=== PATIENT | male | born 1965 | race Caucasian/White ===

== ENCOUNTER 2021-09-03 01:38 | Day surgery (SDC) | payer MEDICARE, SELFPAY ==
[2021-08-19 14:49] VITALS: BMI 23.7
[2021-09-03 07:41] VITALS: BP 111/62; PULSE 111; RESP 18; TEMP 36.2; O2SAT 100; BMI 23.6
[2021-09-03] MEDS: LACTATED RINGERS 1,000 ML 150 ML IV CONT (08:15)
--- NOTE | 2021-09-03 08:25 | WPDANESEPPF ---
Anes - Initial Pre Proc Eval Procedure: Operation Date: 09/03/21 09:00 Proposed Procedures p Esophagogastroduodenoscopy & Colonoscopy - Alex Hodgson MD Date/Time: 09/03/21 08:25 Surgeon: Alex Hodgson MD Pre Op Diagnosis: anemia Patient Data Age: 55 Gender: M Height: 1.78 m Weight: 74.6 kg Last Vital Signs Temp 36.2 C L 09/03/21 07:41 Pulse 111 H 09/03/21 07:41 Resp 18 09/03/21 07:41 BP 111/62 09/03/21 07:41 Pulse Ox 100 09/03/21 07:41 Allergies Allergy/AdvReac Type Severity Reaction Status Date / Time No Known Allergies Allergy Verified 09/03/21 07:53 Home Medications Medication Instructions Recorded Confirmed Type aspirin 162 mg PO DAILY 08/19/21 09/03/21 History atorvastatin 40 mg PO DAILY 08/19/21 09/03/21 History hydrocodone-acetaminophen 10 - 325 tablet PO PRN PRN 08/19/21 09/03/21 History omeprazole 20 mg PO DAILY 08/19/21 09/03/21 History sacubitril-valsartan [Entresto] 24 - 26 tablet PO DAILY 08/19/21 09/03/21 History Patient hx anesthesia problems: none Family hx anesthesia problems: none Results Review: All pre-operative results and documents have been reviewed as part of the pre-operative evaluation. [facility] Past Medical History Medical History (Updated 09/03/21 @ 08:29 by Yunior Gonzalez MD) Amputation finger Chronic back pain Hyperlipidemia Myocardial infarct Raynaud disease Surgical History Surgical History (Updated 09/03/21 @ 08:29 by Yunior Gonzalez MD) History of coronary artery stent placement Social History Social History Smoking status: Former smoker Tobacco type: cigarettes Alcohol use details: rarely Substance use: never Substance use type: does not use Living arrangements: with family Spiritual care concerns: No Anes - Eval Final PreProcedure Day of Procedure 09/03/21 08:25 Patient weight: normal Heart: regular rate and rhythm Lungs: clear to auscultation Airway: Mallampati scale class II Neurological: alert and oriented Last oral intake: >/= 8 hours ASA classification: III Emergent: no Anesthetic plan: proceed Anesthesia type and monitoring: general GIVS and standard monitoring Results Review: All pre-operative results and documents have been reviewed as part of the pre-operative evaluation. Informed Consent: The patient's anesthetic plan and its attendant risks and benefits were discussed with the patient/family/POA. Questions were solicited and answers provided to the satisfaction of the patient/family/POA.
--- NOTE | 2021-09-03 08:29 | WPDGICN ---
Assessment and Plan Assessment and plan (1) Encounter for screening colonoscopy: Code(s): Z12.11 - Encounter for screening for malignant neoplasm of colon Status: Acute Assessment and Plan: Patient presents for screening colonoscopy. He reports has been more than 10 years since last screening exam. Colonoscopy will be performed at this time. Further recommendations after endoscopy. (2) GERD (gastroesophageal reflux disease): Code(s): K21.9 - Gastro-esophageal reflux disease without esophagitis Status: Acute Assessment and Plan: Patient complains of chronic heartburn or regurgitation. This typically occurs with bending over and nocturnally. He takes omeprazole on a daily basis. He believes a 40mg dose but supplements this with a 2nd dose if needed. Plan is for EGD because of chronic GE reflux symptoms. And poor response to current management. Anti-reflux measures are reiterated to the patient today. (3) Anemia: Code(s): D64.9 - Anemia, unspecified Status: Acute Assessment and Plan: Patient has some records that report that he is anemic although laboratory parameters not available for review. A CBC will be obtained today. GI Consult Note Consult date/time: 09/03/21 08:29 HPI: Ignacio Smart is a 55 year old male Presents for GI endoscopy. Patient reports his last colonoscopy was 10 years ago. Apparently was unremarkable. Patient returns today for neoplasia screening additionally patient has a history of chronic GE reflux disease. He has heartburn on a frequent basis. Often when bending over. Also at night when recline. He currently takes omeprazole 40mg p.o. daily and supplements this with an extra pill frequently. Patient any denies any dysphagia or bleeding. Family history is noncontributory. Records that accompany patient states that he may have some mild anemia although exact laboratory parameters are not available for review. Patient denies any obvious signs of GI bleeding. He has not had a stool Hemoccult performed. Review of Systems Review of Systems: All systems reviewed & are unremarkable except as noted in HPI and below PMFSH Past Medical History Medical History (Updated 09/03/21 @ 08:31 by Alex Hodgson MD) Amputation finger Chronic back pain Hyperlipidemia Myocardial infarct Raynaud disease Surgical History Surgical History (Updated 09/03/21 @ 08:29 by Yunior Gonzalez MD) History of coronary artery stent placement Social History Social History Smoking status: Former smoker Tobacco type: cigarettes Alcohol use details: rarely Substance use: never Substance use type: does not use Living arrangements: with family Spiritual care concerns: No Meds Home Medications and Allergies Home Medications Medication Instructions Recorded Confirmed Type aspirin 162 mg PO DAILY 08/19/21 09/03/21 History atorvastatin 40 mg PO DAILY 08/19/21 09/03/21 History hydrocodone-acetaminophen 10 - 325 tablet PO PRN PRN 08/19/21 09/03/21 History omeprazole 20 mg PO DAILY 08/19/21 09/03/21 History sacubitril-valsartan [Entresto] 24 - 26 tablet PO DAILY 08/19/21 09/03/21 History Allergies Allergy/AdvReac Type Severity Reaction Status Date / Time No Known Allergies Allergy Verified 09/03/21 07:53 Vital Signs Vital Signs - 24 hr 09/03/21 07:41 Temperature 97.2 F L Pulse Rate 111 H Respiratory Rate 18 Blood Pressure 111/62 Pulse Oximetry 100 Exam Narrative: Physical exam reveals patient to be alert. Vital signs stable. HEENT exam is unremarkable. Patient is anicteric. Lungs are clear to auscultation and percussion. Heart is without murmur or extra sounds. Abdominal exam bowel sounds are present soft nontender with no hepatosplenomegaly. Digital external rectal exam is normal.
--- NOTE | 2021-09-03 09:39 | SUR.OPER ---
EGD started at 916 and ended at 918. Colonoscopy started at 925 and ended at 936.
[2021-09-03 09:40] VITALS: BP 69/33; PULSE 72; RESP 26; O2SAT 97
[2021-09-03 09:50] VITALS: BP 80/37; PULSE 58; RESP 25; O2SAT 97
[2021-09-03 10:00] VITALS: BP 98/53; PULSE 78; RESP 15; O2SAT 98
[2021-09-03 10:01] LABS: Hematocrit 35.5 % (42.0-52.0); Hemoglobin 11.9 g/dL (14.0-18.0); Mean Corpuscular HGB Conc 33.5 g/dl (32-36); Mean Corpuscular Hemoglobin 31.5 pg (26-34); Mean Corpuscular Volume 93.9 fl (80-100); Platelet Count Result 167 k/mm3 (150-375); Red Blood Count 3.78 M/mm3 (4.6-6.20); Red Cell Distribution Width 13.4 % (11.5-14.5); White Blood Count 7.6 K/mm3 (4.5-10.0)
== END 2021-09-03 10:17 | disposition home or self-care (01) ==
PROVIDERS: PCP Internal Medicine; Visit Provider Internal Medicine Gastroenterology
PROC: 0DJ08ZZ Inspection of Upper Intestinal Tract, Via Natural or Artificial Opening Endoscopic (ICD-10-PCS; CPT 43235; principal; 2021-09-03 09:00)
DX: Z12.11 Encounter for screening for malignant neoplasm of colon (principal); K63.5 Polyp of colon; K22.70 Barrett's esophagus without dysplasia; K21.00 Gastro-esophageal reflux disease with esophagitis, without bleeding; E78.5 Hyperlipidemia, unspecified; I73.00 Raynaud's syndrome without gangrene; M54.9 Dorsalgia, unspecified; G89.29 Other chronic pain; I25.2 Old myocardial infarction; Z89.029 Acquired absence of unspecified finger(s)
CPT/HCPCS: 45380; 43239; 36415; 85027; 88305; J2370; J2704; J7120

== ENCOUNTER 2022-02-10 07:29 | Outpatient (CLI) | payer MEDICARE, SELFPAY ==
--- NOTE | ~2022-02-10 | US_ITS ---
EXAMINATION: US aorta DATE: 02/10/2022 08:00 INDICATION: Abdominal aortic bruit TECHNIQUE: Grayscale, color Doppler, and pulsed Doppler images of the aorta and common iliac arteries were obtained. COMPARISON: CT dated 04/23/2018 FINDINGS: The proximal aorta measures 2.3 cm in AP diameter. The mid aorta measures 2.1 cm. The distal aorta me asures 2.0 cm. The right common iliac artery measures 8 mm. The left common iliac artery measures 7 m m. The visualized proximal inferior vena cava is normal. IMPRESSION: 1. Normal caliber abdominal aorta. Reviewed, dictated and finalized at location A.
== END 2022-02-10 07:30 | disposition home or self-care (01) ==
LOC: CHSIMG 07:31
PROVIDERS: PCP Internal Medicine; Visit Provider Internal Medicine
DX: I73.9 Peripheral vascular disease, unspecified (principal); R09.89 Other specified symptoms and signs involving the circulatory and respiratory systems
CPT/HCPCS: 76775

== ENCOUNTER 2022-02-12 07:30 | Outpatient (CLI) | payer MEDICARE, SELFPAY ==
--- NOTE | ~2022-02-12 | US_ITS ---
EXAMINATION: US arterial ankle brachial ind DATE: 02/12/2022 08:16 INDICATION: Peripheral arterial disease. TECHNIQUE: Segmental pressures and plethysmographic and Doppler waveforms of the brachial and lower e xtremity arteries were obtained. COMPARISON: None. FINDINGS: Right and left brachial artery pressures of 99 mm Hg and 99 mm Hg, respectively, are concordant (norm al difference <= 30 mmHg). The right ankle-brachial index (JOESPH) is 1.03 (normal >= 0.9-1.0). The right great toe-brachial index (TBI) is 0.57 (normal >= 0.65). Arterial Doppler waveforms are biphasic at the ankle. The left JOESPH is 1.04. The left TBI is 0.61. Arterial Doppler waveforms are biphasic at the ankle. IMPRESSION: 1. Normal ABIs and mildly decreased TBIs, consistent with arterial occlusive disease. Reviewed, dictated and finalized at location B. IMPRESSION: 1. Normal ABIs and mildly decreased TBIs, consistent with arterial occlusive di sease.
== END 2022-02-12 07:31 | disposition home or self-care (01) ==
LOC: CHSIMG 07:31
PROVIDERS: PCP Internal Medicine; Visit Provider Internal Medicine
DX: R09.89 Other specified symptoms and signs involving the circulatory and respiratory systems (principal); I73.9 Peripheral vascular disease, unspecified; I71.4 Abdominal aortic aneurysm, without rupture
CPT/HCPCS: 93922

== ENCOUNTER 2022-02-19 07:25 | Outpatient (CLI) | payer MEDICARE, SELFPAY ==
--- NOTE | ~2022-02-19 | CT_ITS ---
EXAMINATION: CTA abd aorta runoff DATE: 02/19/2022 08:38 INDICATION: Lower extremity numbness and tingling TECHNIQUE: Computed tomographic angiography (CTA) of the abdomen, pelvis, and both lower extremities was performed with 150 mL Omnipaque-350 intravenous contrast. The dose-length product (DLP) was 871.4 5 mGy-cm. Maximum intensity projection 3D-reconstructions of the arteries were created by the technol lety on a separate workstation. Automated exposure control and iterative reconstruction technique we re employed. COMPARISON: None. FINDINGS: ABDOMINAL AORTA AND ITS BRANCHES: There is calcified atherosclerosis without aneurysm or dissection. The superior mesenteric artery, in ferior mesenteric artery, and celiac axis are unremarkable. Single renal arteries are present. PELVIC VASCULATURE: There is mild atherosclerosis of the common iliac arteries and internal iliac arteries without hemody namically significant stenosis. RIGHT LOWER EXTREMITY VASCULATURE: There is mild calcified atherosclerosis of the distal femoral artery without hemodynamically signific ant stenosis. The remainder of the lower extremity arteries are essentially normal. Three-vessel runo ff at the ankle. LEFT LOWER EXTREMITY VASCULATURE: There is mild atherosclerosis of the distal femoral artery without hemodynamically significant stenos is. There are few focal areas of calcified atherosclerosis without significant stenosis in the superf icial femoral artery. The remainder of the lower extremity arteries are essentially normal. Three-ves tawanna runoff at the ankle. ADDITIONAL FINDINGS: The liver, spleen, pancreas, gallbladder, and adrenal glands are normal. Cysts of the kidneys measure up to 1.8 cm on the right. No pathologically enlarged abdominal or pelvic lymph nodes are identified . There is no free intraperitoneal gas or evidence of bowel obstruction. There is mild lumbar spondyl osis. IMPRESSION: 1. Areas of calcified atherosclerosis without hemodynamically significant stenosis. Reviewed, dictated and finalized at location A. IMPRESSION: 1. Areas of calcified atherosclerosis without hemodynamically significant steno sis.
== END 2022-02-19 07:26 | disposition home or self-care (01) ==
LOC: CHSIMG 07:27
PROVIDERS: PCP Internal Medicine; Visit Provider Internal Medicine
DX: I73.9 Peripheral vascular disease, unspecified (principal)
CPT/HCPCS: 75635; Q9967

== ENCOUNTER 2023-11-02 07:34 | Outpatient (CLI) | payer MEDICARE, SELFPAY ==
--- NOTE | ~2023-11-02 | US_ITS ---
Thyroid ultrasound. Clinical History: Hypothyroidism Findings: Real-time sonography of the thyroid gland was performed. The right lobe measures 5.7 x 1.4 x 2.0 cm. The left lobe measures 4.3 x 1.7 x 1.6 cm. The isthmus is 6 mm in AP diameter. No thyroid nodule identified. Impression: No significant abnormality seen. No thyroid nodule identified.. Reviewed, dictated and finalized at location . O TAPE DUPLICATOR Impression: No significant abnormality seen. No thyroid nodule identified..
== END 2023-11-02 07:35 | disposition home or self-care (01) ==
LOC: CHSIMG 07:36
PROVIDERS: PCP Internal Medicine; Visit Provider Internal Medicine
DX: E03.9 Hypothyroidism, unspecified (principal)
CPT/HCPCS: 76536

== ENCOUNTER 2023-12-15 00:29 | Day surgery (SDC) | payer MEDICARE, SELFPAY ==
[2023-11-30 15:32] VITALS: BMI 23.7
--- NOTE | 2023-12-04 09:59 | PC.NURSE ---
Spoke with patient regarding medication CILOSTAZOL. Pt. verbalizes understanding that the last dose of CILOSTAZOL is to be taken on 12/10/2023 and the Endoscopist will instruct them when to restart after the procedure. PT. to remain on Aspirin.
--- NOTE | 2023-12-11 14:03 | SUR.PREOP ---
Patient called regarding upcoming procedure. Reviewed preop instructions, appointment times, and procedure prep.
--- NOTE | 2023-12-14 13:56 | PM.HPGS ---
History of Present Illness History of Present Illness Consent: Risks, benefits, and alternatives have been discussed and questions answered. Patient agrees to proceed with procedure. Chief complaint: Barretts Esophagus Narrative: Ignacio Smart is a 58 year old male Who 3 years ago was found to have Barretts esophagus when undergoing endoscopy returns now for follow-up. Review of Systems Review of Systems: All systems reviewed & are unremarkable except as noted in HPI and below PMFSH Past Medical History Medical History Amputation finger Chronic back pain Hyperlipidemia Myocardial infarct Raynaud disease Surgical History Surgical History History of coronary artery stent placement Family History Family History Father Cancer Mother Heart disease Social History Social History Smoking packs per day: 1 Smoking cigarettes per day: 20.0 Years smoked: 38 Smoking pack-years: 38.00 Smoking status: Former smoker Tobacco type: cigarettes Alcohol intake: current Alcohol use details: rarely Substance use: never Substance use type: does not use Do You Feel Safe in your Home?: Yes Lack of Transportation: No Lack of Food: Never True Current Housing: I Have Housing Concerned About Future Housing: No Difficulty Paying Gas/Electric Bills: No Difficulty Paying for Meds: No Currently Unemployed: No Education: High School Diploma/GED Difficulty w/ Childcare or Family Care: No Living arrangements: with family Spiritual care concerns: No Meds Home Medications and Allergies Home Medications Medication Instructions Recorded Confirmed Type aspirin 81 mg tablet 81 mg PO DAILY 08/19/21 12/02/23 History hydrocodone 10 mg-acetaminophen 10 - 325 tablet PO Q6H PRN Back 08/19/21 12/02/23 History 325 mg tablet Pain omeprazole 20 mg capsule,delayed 20 mg PO BID 08/19/21 12/02/23 History release sacubitril 24 mg-valsartan 26 mg 24 - 26 tablet PO BID 08/19/21 12/02/23 History tablet (Entresto) cilostazol 50 mg tablet 50 mg PO BID 11/18/23 12/02/23 History clotrimazole 1 % topical solution See Rx Instructions topical 11/18/23 12/02/23 Rx .COMPLEX #30 mL carvedilol 3.125 mg tablet 3.125 mg PO BID 11/30/23 12/02/23 History evolocumab 140 mg/mL subcutaneous 140 mg subcut Q14D 11/30/23 12/02/23 History pen injector (eliaskaterina LemaToick) spironolactone 25 mg tablet 12.5 mg PO DAILY 11/30/23 12/02/23 History Allergies Allergy/AdvReac Type Severity Reaction Status Date / Time atorvastatin Allergy Severe muscle loss Verified 12/02/23 08:27 [id number] Reductase Allergy Severe MUSCLE LOSS Verified 12/02/23 08:27 Inhibitor Exam Const: General: alert Orientation/consciousness: patient oriented x3 Resp: Auscultation: clear to auscultation bilaterally Cardio: Rhythm: regular rhythm GI: GI Palp: Yes Soft to palpation and No Tenderness to palpation present (GI) Neuro: General: patient oriented x3 Assessment and Plan Assessment and plan (1) Castellon's esophagus: Code(s): K22.70 - Castellon's esophagus without dysplasia Status: Acute Assessment and Plan: EGD with possible biopsy or dilatation or cautery.
[2023-12-15 06:16] VITALS: BP 100/55; PULSE 97; RESP 18; TEMP 36.8; O2SAT 100; BMI 23.1
[2023-12-15] MEDS: LACTATED RINGERS 1,000 ML 150 ML IV CONT (06:45)
--- NOTE | 2023-12-15 07:23 | WPDANESEPPF ---
Anes - Initial Pre Proc Eval Procedure: Operation Date: 12/15/23 07:30 Proposed Procedures p Esophagogastroduodenoscopy - Jovani Keller MD Date/Time: 12/15/23 07:23 Surgeon: Jovani Keller MD Pre Op Diagnosis: Barretts Esophagus Patient Data Age: 58 Gender: M Height: 1.78 m Weight: 73 kg Last Vital Signs Temp 98.3 F 12/15/23 06:16 Pulse 97 12/15/23 06:16 Resp 18 12/15/23 06:16 BP 100/55 L 12/15/23 06:16 Pulse Ox 100 12/15/23 06:16 O2 Del Method Room Air 12/15/23 06:16 Allergies Allergy/AdvReac Type Severity Reaction Status Date / Time atorvastatin Allergy Severe muscle loss Verified 12/02/23 08:27 [id number]-MuC Reductase Allergy Severe MUSCLE LOSS Verified 12/02/23 08:27 Inhibitor Home Medications Medication Instructions Recorded Confirmed Type aspirin 81 mg tablet 81 mg PO DAILY 08/19/21 12/02/23 History hydrocodone 10 mg-acetaminophen 10 - 325 tablet PO Q6H PRN Back 08/19/21 12/02/23 History 325 mg tablet Pain omeprazole 20 mg capsule,delayed 20 mg PO BID 08/19/21 12/02/23 History release sacubitril 24 mg-valsartan 26 mg 24 - 26 tablet PO BID 08/19/21 12/02/23 History tablet (Entresto) cilostazol 50 mg tablet 50 mg PO BID 11/18/23 12/02/23 History clotrimazole 1 % topical solution See Rx Instructions topical 11/18/23 12/02/23 Rx .COMPLEX #30 mL carvedilol 3.125 mg tablet 3.125 mg PO BID 11/30/23 12/02/23 History evolocumab 140 mg/mL subcutaneous 140 mg subcut Q14D 11/30/23 12/02/23 History pen injector (Lynette Walker) spironolactone 25 mg tablet 12.5 mg PO DAILY 11/30/23 12/02/23 History Patient hx anesthesia problems: none Family hx anesthesia problems: none Results Review: All pre-operative results and documents have been reviewed as part of the pre-operative evaluation. [facility] Past Medical History Medical History Amputation finger Chronic back pain Hyperlipidemia Myocardial infarct Raynaud disease Surgical History Surgical History History of coronary artery stent placement Family History Family History Father Cancer Mother Heart disease Social History Social History Smoking packs per day: 1 Smoking cigarettes per day: 20.0 Years smoked: 38 Smoking pack-years: 38.00 Smoking status: Former smoker Tobacco type: cigarettes Alcohol intake: current Alcohol use details: rarely Substance use: never Substance use type: does not use Do You Feel Safe in your Home?: Yes Lack of Transportation: No Lack of Food: Never True Current Housing: I Have Housing Concerned About Future Housing: No Difficulty Paying Gas/Electric Bills: No Difficulty Paying for Meds: No Currently Unemployed: No Education: High School Diploma/GED Difficulty w/ Childcare or Family Care: No Living arrangements: with family Spiritual care concerns: No Anes - Eval Final PreProcedure Day of Procedure 12/15/23 07:23 Patient weight: normal Heart: regular rate and rhythm Lungs: clear to auscultation Airway: Mallampati scale class II Neurological: alert and oriented Last oral intake: >/= 8 hours ASA classification: III Emergent: no Anesthetic plan: proceed Anesthesia type and monitoring: general GIVS and standard monitoring Results Review: All pre-operative results and documents have been reviewed as part of the pre-operative evaluation. Informed Consent: The patient's anesthetic plan and its attendant risks and benefits were discussed with the patient/family/POA. Questions were solicited and answers provided to the satisfaction of the patient/family/POA.
[2023-12-15 07:39] VITALS: BP 90/51; PULSE 69; RESP 15; O2SAT 100
[2023-12-15 07:49] VITALS: BP 88/45; PULSE 64; RESP 18; O2SAT 100
[2023-12-15 07:59] VITALS: BP 95/51; PULSE 67; RESP 18; O2SAT 100
== END 2023-12-15 08:24 | disposition home or self-care (01) ==
PROVIDERS: PCP Internal Medicine; Visit Provider Internal Medicine Gastroenterology
PROC: 0DJ08ZZ Inspection of Upper Intestinal Tract, Via Natural or Artificial Opening Endoscopic (ICD-10-PCS; CPT 43235; principal; 2023-12-15 07:30)
DX: K22.70 Barrett's esophagus without dysplasia (principal); K31.84 Gastroparesis; K21.00 Gastro-esophageal reflux disease with esophagitis, without bleeding; K31.A0 Gastric intestinal metaplasia, unspecified; T18.2XXA Foreign body in stomach, initial encounter; W44.F1XA Bezoar entering into or through a natural orifice, initial encounter
CPT/HCPCS: 43239; 88305; 88313; J2704; J7120

== ENCOUNTER 2024-05-11 08:25 | Outpatient (CLI) | payer MEDICARE, SELFPAY ==
--- NOTE | ~2024-05-11 | CT_ITS ---
CT Scan of the Chest without Contrast: Clinical Indication: Lung cancer screening, nicotine dependence Technique: Contiguous sections were acquired throughout the chest without intravenous contrast. Dose reduction technique was used on this scan by utilizing automated exposure control and iterative recon struction technique. The dose-length product (DLP) was 80.14 mGy-cm. Findings: There is no evidence of any significant mediastinal, hilar or axillary lymphadenopathy. Calcified rig ht hilar lymph node present. Coronary artery calcium cages are present. There is no evidence of pleural or pericardial effusion. Biapical scarring is present. Calcified right middle lobe granuloma present. Images through the upper abdomen reveal no abnormalities. Impression: Lung RADS 2: Benign appearance. 12 month follow-up screening CT advised. Reviewed, dictated and finalized at [facility]. Impression: Lung RADS 2: Benign appearance. 12 month follow-up screening CT advised.
== END 2024-05-11 08:26 | disposition home or self-care (01) ==
LOC: CHSIMG 08:26
PROVIDERS: PCP Internal Medicine; Visit Provider Internal Medicine
DX: Z12.2 Encounter for screening for malignant neoplasm of respiratory organs (principal); Z87.891 Personal history of nicotine dependence
CPT/HCPCS: 71271

== ENCOUNTER 2024-06-30 09:29 | Outpatient (CLI) | payer MEDICARE, SELFPAY ==
--- NOTE | ~2024-06-30 | MMUS_ITS ---
EXAMINATION: MM diagnostic deloris BI w kelly, US breast RT limited HISTORY: Right breast pain and swelling retroareolar region TECHNIQUE: 3-D tomosynthesis images of the right breast were performed and synthetic 2-D images were generated. CAD analysis was submitted and interpreted. High resolution limited right breast ultrasoun d was performed. COMPARISON: None BREAST PARENCHYMAL COMPOSITION:Not Dense. The breasts are almost entirely fatty FINDINGS: MAMMOGRAPHIC FINDINGS: There is mild fibroglandular tissue in the subareolar region, most compatible with gynecomastia. No s uspicious mass or distortion. No suspicious metastatic opacification. ULTRASOUND: Hypoechoic region in the subareolar region is compatible with gynecomastia. No suspicious mass eviden t. IMPRESSION: Findings compatible with gynecomastia. No evidence for malignancy. BI-RADS Category 2: Benign finding(s). Reviewed, dictated and finalized at location . IMPRESSION: Findings compatible with gynecomastia. No evidence for malignancy. BI-RADS Category 2: Benign finding(s).
== END 2024-06-30 09:30 | disposition home or self-care (01) ==
LOC: CHSIMG 09:31
PROVIDERS: PCP Internal Medicine; Visit Provider Nurse Practitioner Family
DX: N64.4 Mastodynia (principal)
CPT/HCPCS: 76642; 77062; 77066; G0279

== ENCOUNTER 2024-09-05 14:37 | Outpatient (CLI) | payer MEDICARE, SELFPAY ==
[2024-09-05 14:56] LABS: Basophils Absolute Auto 0.04 K/mm3 (0.00-0.10); Basophils Percent Auto 0.3 % (0.0-1.0); Eosinophils Absolute Auto 0.14 K/mm3 (0.02-0.50); Eosinophils Percent Auto 1.1 % (1.0-6.0); Hematocrit 38.1 % (40.0-54.0); Hemoglobin 12.8 g/dL (14.0-18.0); Immature Granulocyte Absolute 0.06 K/mm3 (0.00-0.00); Immature Granulocyte Percent A 0.5 % (0.0-0.0); Lymphocytes Absolute Auto 1.13 K/mm3 (1.10-4.50); Mean Corpuscular HGB Conc 33.6 g/dL (32-36); Mean Corpuscular Hemoglobin 30.5 pg (27.0-31.0); Mean Corpuscular Volume 90.9 fL (78.0-102.0); Mean Platelet Volume 9.3 fl (8.7-11.0); Monocytes Absolute Auto 1.03 K/mm3 (0.10-0.90); Monocytes Percent Auto 8.2 % (2.0-11.0); Neutrophils Absolute Auto 10.12 K/mm3 (1.70-7.20); Neutrophils Percent Auto 80.9 % (50.0-70.0); Platelet Count Result 194 K/mm3 (150-420); Red Blood Count 4.19 M/mm3 (4.70-6.10); Red Cell Distribution Width 13.3 % (11.6-14.4); White Blood Count 12.5 K/mm3 (4.8-10.8)
[2024-09-05 15:30] LABS: Strep Group A RT-PCR NOT DETECTED (Negative)
== END 2024-09-05 14:38 | disposition home or self-care (01) ==
LOC: CHSLAB 14:39
PROVIDERS: PCP Internal Medicine; Visit Provider Internal Medicine
DX: J06.9 Acute upper respiratory infection, unspecified (principal); J02.9 Acute pharyngitis, unspecified
CPT/HCPCS: 36415; 85025; 87651

== ENCOUNTER 2025-06-30 08:35 | Outpatient (CLI) | payer MEDICARE, SELFPAY ==
--- NOTE | ~2025-06-30 | CT_ITS ---
EXAMINATION:CT lung screening DATE: 06/30/2025 08:49 INDICATION: Personal history of nicotine dependence. TECHNIQUE: Computed tomography (CT) of the chest was performed without intravenous contrast. Automated exposure control and iterative reconstruction technique were employed. The dose-length product (DLP) was 135.56 mGy-cm. COMPARISON: Chest CT 05/11/2024 FINDINGS: There is stable scarring at the lung apices. There is mild emphysema. A calcified right lung nodule and calcified right hilar lymph nodes are consistent with old granulomatous disease. There is a stable 4 mm nodule in left upper lobe. No pleural effusion. The heart size is normal. There are coronary artery calcifications. No pericardial effusion. There is mild thoracic spondylosis. IMPRESSION: 1. Lung-RADS category 2: Benign appearance or behavior. Continue annual screening with noncontrast low-dose chest CT in 12 months. Reviewed, dictated and finalized at location E. IMPRESSION: 1. Lung-RADS category 2: Benign appearance or behavior. Continue annual screeni ng with noncontrast low-dose chest CT in 12 months.
--- OUTSIDE RECORDS SUMMARY | 2025-06-30 08:38 | XMS_ITS | Clinical Summary ---
Author Organization [facility] Address [address] [place] [address] Care Team Providers Care Division Roadmaster Name Role Phone Unavailable Primary Care Provider Unavailabl e Source Comments [facility],non-owned Affiliates and Associated Physician Practices is amultiple site organization consisting of ambulatory clinics and hospital sitesin [place], [place], [place] and [place]. This disclosure is being madepursuant to the Care Everywhere program and may not contain all information available regarding this patient. Last updated 18.[facility] Allergies No known active allergies Social History Tobacco Use Types Packs/Day Years Used Date Smoking Tobacco: Never Assessed Sex and Gender Information Value Date Recorded Sex Assigned at Not on file Legal Sex Male 1:42 PM CDT Gender Identity Not on file Sexual Orientation Not on file Plan of Treatment Health Maintenance Due Date Last Done Comments COLOGUARD (AGES 45-75) - COL ON CA SCREENING 1964 COLON MONITORING 1964 COLONOSCOPY - COLON CA SCREENING 1964 CT COLONOGRAPHY - COLON CA SCREENING 1964 Colorectal Cancer Screening 1964 FIT - COLON CA SCREENING 1964 FLEX SIG - COLON CA SCREENING 1964 LIPID TESTING 1964 HIV SCREENING 1979 HEPATITIS C SCREENING 11/15/1982 DTAP/TDAP/TD VACCINES (1 - Tdap) 1983 PNEUMOCOCCAL VACCINE 50+ (1 of 1 - PCV) 2014 ZOSTER VACCINE (1 of 2) 2014 DEPRESSION SCREENING 10/12/2024 MEDICARE AWV CALENDAR YEAR 2024 COVID-19 VACCINE ( - 2023-2 5 season) 2025 INFLUENZA VACCINE (#1) 2025 Respiratory Syncytial Virus (RSV) Vaccine Pt: or over 60 yrs (1 - 1-dose 75+ series) 2039 HEPATITIS B VACCINE Aged Out No longe r eligible based on patient's age to complete this topic HIB VACCINE Aged Out No longer eligi ble based on patient's age to complete this topic HPV VACCINE Aged Out No longer eligi ble based on patient's age to complete this topic MENINGOCOCCAL (Group B) VACC INE SHARED DECISION-MAKING Aged Out No longer eligibl e based on patient's age to complete this topic MENINGOCOCCAL GROUPS A/C/Y/W VACCINE Aged Out No longer eligible b ased on patient's age to complete this topic Insurance [facility] MANAGED MEDICARE ADV SELF PAY NO INSURANCE Member Subscriber Plan / Payer (Ef fective for All Dates) Name:Samantha Smart Member ID:Not on file Relation to Subscriber:Not on file Name:SAMANTHA SMART Subscriber ID:Not on file Address: [address] [place] [id number] Payer ID:Not on file Group ID:Not on file Type:Self Pay Address: [place], [place] [employer] MANAGED MEDICARE ADV SELF PAY NO INSURANCE Member Subscriber Plan / Payer (Ef fective for All Dates) Name:Samantha Smart Member ID:Not on file Relation to Subscriber:Not on file Name:SAMANTHA SMART Subscriber ID:Not on file Address: [address] [place] [address] Payer ID:Not on file Group ID:Not on file Type:Self Pay Address: [facility] MANAGED MEDICARE ADV SELF PAY NO INSURANCE Member Subscriber Plan / Payer (Ef fective for All Dates) Name:Samantha Smart Member ID:Not on file Relation to Subscriber:Not on file Name:SAMANTHA SMART Subscriber ID:Not on file Address: [address] [place] [address] Payer ID:Not on file Group ID:Not on file Type:Self Pay Address: [facility] MEDICARE ADV
--- OUTSIDE RECORDS SUMMARY | 2025-06-30 08:38 | XMS_ITS | Clinical Summary ---
Author Organization [facility] Address [address] [place] [address] Care Team Providers Care Auto Damage Appraiser Name Role Phone Sanjeev Claudio MD Primary Care Provider [phone] Allergies Active Allergy Reactions Criticality Noted Date Comments Atorvastatin Unknown Medium 11/24/2017 Elevated CPK/CK Currently tolerating 40mg/daily Medications HYDROcodone-acetam inophen (NORCO) 10-325 mg per tabletIndications: Pain Take 1 tablet by mouth every 4 (four) hours as needed 09/30/20 13 Active nitroglycerin (NITROSTAT) 0.[address] 1 tablet (0.4 mg total) under the tongue every 5 (five) minutes as needed for chest pain Active omeprazole (PriLOSEC) 40 mg capsule 07/25/20 22 Active coenzyme Q10 10 mg capsule Take 1 capsule (10 mg total) by mouth daily Active multivitamin capsule Take 1 capsule by mouth daily Active mv-mn/iron/folic acid/herb 190 (VITAMIN D3 COMPLETE ORAL) Take by mouth A ctive cyanocobalamin, vitamin B-12, (VITAMIN B-12 ORAL) Take by mouth Active evolocumab 140 mg/mL pen injectorIndication s:atherosclerotic cardiovascular disease,hyperchole sterolemia Inject 1 mL (140 mg total) under the skin every 2 (two) weeks 6 mL 3 04/22/20 23 Active aspirin 81 mg enteric coated tablet Take 1 tablet (81 mg total) by mouth daily Active sacubitriL-valsart an (ENTRESTO) 24-26 mg tabletIndications: chronic heart failure Take 0.5 tablets by mouth 2 (two) times a day 90 tablet 3 06/06/20 24 Active SF 5000 Plus 1.1 % cream 06/14/20 24 Active sacubitriL-valsart an (Entresto) 24-26 mg tablet Use as directed 28 tablet 08/04/20 24 Active Additional Information Patient not taking.Reported on 09/28/2024 dapagliflozin propanediol (FARXIGA) 10 mg tablet Take 1 tablet (10 mg total) by mouth daily 30 tablet 11 08/12/20 24 025 Active dapagliflozin propanediol (FARXIGA) 10 mg tablet Use as directed 14 tablet 12/07/19 25 Active sacubitriL-valsart an (ENTRESTO) 24-26 mg tabletIndications: chronic heart failure Use as directed 28 tablet 12/07/19 25 Active carvediloL (COREG) 3.125 mg tablet TAKE ONE TABLET BY MOUTH TWICE A DAY 60 tablet 11 02/18/20 25 Active cilostazoL (PLETAL) 50 mg tablet TAKE ONE TABLET BY MOUTH TWICE A DAY 180 tablet 3 02/29/20 25 Active Repatha SureClick 140 mg/mL pen injector ADMINISTER 1 ML(140 MG) UNDER THE SKIN EVERY 14 DAYS 6 mL 05/31/20 25 Active Active Problems Problem Noted Date Diagnosed Date Ischemic cardiomyopathy 04/26/2024 Chronic diastolic congestive heart failure 04/26 Cardiac left ventricular ejection fraction 21-40 percent 04/26/2024 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 11/28/2020 Overview (11/28/2020): Added automatically from request for surgery [id number] Coronary artery disease with angina pectoris 03/2020 Overview (04/16/2020): Added automatically from request for surgery [id number] Chest pain 04/16/2020 Overview (04/16/2020): Added automatically from request for surgery [id number] Thromboangiitis obliterans 12/20/2012 Raised antibody titer 03/22/2012 Injury of finger 01/26/2012 Acid phosphatase serum increased 02/27/2011 Hyperlipidemia Immunizations Immunization Administration Dates Next Due Influenza, Quadrivalent, Spl it, Intramuscular 07/31/2014 Influenza, Quadrivalent, Spl it, Preservative Free, Intramuscular 07/20/2019,07/30/2018,07/16/2015 Influenza, Trivalent, IM (MDV) 06/26/2017,2012 Pneumococcal Conjugate PCV 13 07/16/2015 Tdap 09/12/2009 Surgical History Surgery Date Site/Laterality Comments CARDIAC CATHETERIZATION 05/09/2020 CORONARY STENT PLACEMENT 10/08/2017 2 stents in RIght Coronary Artery AMPUTATION FINGER / THUMB 10/12/2014 - 10/11/2015 Right middle finger tip Medical History Medical History Date Comments Coronary artery disease Hyperlipidemia Hypertension GERD (gastroesophageal reflux disease) well controlled Raynaud's disease Family History Medical History Relation Name Comments Cancer Father Heart disease Father Family history of cardiac disorder - (Added by TW Conv) Heart attack Mother Cancer Other 1 Family history of malignant neoplasm - (Added by TW Conv) Heart disease Other 2 Family history of cardiac disorder - (Added by TW Conv) Anesthesia problems Neg Hx Relation Name Status Comments Father Mother Other 1 Other 2 Social History Tobacco Use Types Packs/Day Years Used Date Smoking Tobacco: Former Cigarettes 1 34 1 980 - 2014 Passive Smoke Exposure: Past Smokeless Tobacco: Never Tobacco Cessation:Counseling Given: Not Answered Alcohol Use Standard Drinks/Week Comments Yes 0 (1 standard drink = 0.6 oz pure alcohol) couple drinks every couple months Personal Safety Answer Date Recorded Have you ever been in or are you currently in a harmful physical or emotional relationship or is someone making you feel afraid or unsafe? 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 Not on file Not on file Not on file Obstetrics History Last Filed Vital Signs Vital Sign Reading Time Taken Comments Blood Pressure 97/65 12/07/2024 11:09 AM VENDING ROUTE SERVICER Pulse 66 12/07/2024 11:09 AM VENDING ROUTE SERVICER Temperature 36.8 C (98.2 F) 12/07/2024 11:09 AM VENDING ROUTE SERVICER Respiratory Rate 18 09/28/2024 8:21 AM VENDING ROUTE SERVICER Oxygen Saturation 97% 06/06/2024 9:15 AM CDT Inhaled Oxygen Concentration - - Weight 76.2 kg (168 lb) 12/07/2024 11:09 AM VENDING ROUTE SERVICER Height 177.8 cm (5' 10) 12/07/2024 11:09 AM VENDING ROUTE SERVICER Body Mass Index 24.11 12/07/2024 11:09 AM VENDING ROUTE SERVICER Plan of Treatment Health Maintenance Due Date Last Done Comments Colon Cancer Screening-Colonoscopy 1964 Depression Screening 1964 Hepatitis C Screening 1964 Prostate Cancer Screening-PSA 1964 Hepatitis B Screening 1982 Regular Well Visit/Exam 18-64 1982 Lung Cancer Screening 2014 Zoster Vaccine (1 of 2) 2014 Pneumococcal vaccine <65 (2 of 2 - PPSV23, PCV20, or PCV21) 09/10/2015 07/16/2015 DTaP/Tdap/Td Vaccine (2 - Td or Tdap) 09/12/2019 09/12/2009 Influenza Vaccine (#1) 2025 9, 07/30/2018, 06/26/2017, Additional history exists Insurance [facility] MEDICARE ADVANTAGE [facility] Address: [address] [address] [place] [address] [facility] MDCR HMO REF [facility] Address: [address] [address] [place] [address] [facility] Address: [address] [address] [place] [address] [employer] MEDICARE ADVANTAGE Advance Directives For more information, please contact: [phone] * Full Code (Latest Code Status on File) Date Activated Date Inactivated Comments 05/20/2024 9:52 AM 05/21/2024 4:38 AM Care Teams Auto Damage Appraiser Relationship Specialty Start Date End Date Sanjeev Claudio MD [address] [place] [address] PCP - General 12/19/16
--- OUTSIDE RECORDS SUMMARY | 2025-06-30 08:38 | XMS_ITS | Encounter Summary ---
Author Organization [facility] Address [address] [place] [address] Phone Care Team Providers Care Transport Coordinator Name Role Phone Sanjeev Claudio MD Primary Care Provider Encounter Details Date Type Department Care Team (Latest Contact Info) Description 10/09/2017 Orders Only [facility] Scanning, Provider Social History Tobacco Use Types Packs/Day Years Used Date Smoking Tobacco: Former Sex and Gender Information Value Date Recorded Sex Assigned at Not on file Legal Sex Male 8:59 AM 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 TWINE POLISHER OPERATOR Gender Identity Not on file Sexual Orientation Not on file documented as of this encounter Plan of Treatment Not on file documented as of this encounter Procedures Procedure Name Priority Date/Time Associated Diagnosis Comments CARDIOLOGY DOCUMENT SCAN 10/08/2017 documented in this encounter Results * SCAN - CARDIOLOGY (10/08/2017) Anatomical Region Laterality Modality Other us Provider Scanning CV CARDIAC SERVICES PROCEDURES Edited Result - Final documented in this encounter Visit Diagnoses Not on filedocumented in this encounter Care Teams Transport Coordinator Relationship Specialty Start Date End Date Sanjeev Claudio MD [address] [place], [place] [id number] PCP - General 12/19/16 documented as of this encounter
--- OUTSIDE RECORDS SUMMARY | 2025-06-30 08:38 | XMS_ITS | Encounter Summary ---
Author Organization [facility] Address [address] [place] [address] Phone Care Team Providers Care Corrective And Manual Arts Therapist Name Role Phone Sanjeev Claudio MD Primary Care Provider Encounter Details Date Type Department Care Team (Latest Contact Info) Description 07/20/2020 Orders Only [facility] Scanning, Provider Social History Tobacco Use Types Packs/Day Years Used Date Smoking Tobacco: Former Cigarettes Q uit: 2013 Smokeless Tobacco: Never Alcohol Use Standard Drinks/Week Comments Not Currently 0 (1 standard drink = 0.6 oz pur e alcohol) Sex and Gender Information Value Date Recorded Sex Assigned at Not on file Legal Sex Male 8:59 AM MULTIPLE DRILL OPERATOR Gender Identity Not on file Sexual Orientation Not on file documented as of this encounter Plan of Treatment Not on file documented as of this encounter Procedures Procedure Name Priority Date/Time Associated Diagnosis Comments SCAN - LABS 07/20/2020 documented in this encounter Results * SCAN - LABS (07/20/2020) us Provider Scanning Final Result documented in this encounter Visit Diagnoses Not on filedocumented in this encounter Care Teams Corrective And Manual Arts Therapist Relationship Specialty Start Date End Date Sanjeev Claudio MD [address] [place], [place] [id number] PCP - General 12/19/16 documented as of this encounter
--- OUTSIDE RECORDS SUMMARY | 2025-06-30 08:38 | XMS_ITS | Encounter Summary ---
Author Organization [facility] Address [address] [place] [address] Phone Care Team Providers Care Assistant Surveyor Name Role Phone Sanjeev Claudio MD Primary Care Provider [phone] Encounter Details Date Type Department Care Team (Latest Contact Info) Description 10/23/2022 Orders Only [facility] Scanning, Provider Social History Tobacco Use Types Packs/Day Years Used Date Smoking Tobacco: Former Cigarettes 1 34 1 980 - 2013 Smokeless Tobacco: Never Alcohol Use Standard Drinks/Week Comments Yes 0 (1 standard drink = 0.6 oz pure alcohol) couple drinks every couple months Sex and Gender Information Value Date Recorded Sex Assigned at Not on file Legal Sex Male 8:59 AM OPERA SINGER Gender Identity Not on file Sexual Orientation Not on file 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
--- OUTSIDE RECORDS SUMMARY | 2025-06-30 08:38 | XMS_ITS | Encounter Summary ---
Author Organization [facility] Address [address] [place] [address] Phone Care Team Providers Care Jig Fitter Name Role Phone Sanjeev Claudio MD Primary Care Provider Encounter Details Date Type Department Care Team (Latest Contact Info) Description 07/14/2019 Orders Only [facility] Scanning, Provider Social History Tobacco Use Types Packs/Day Years Used Date Smoking Tobacco: Former Sex and Gender Information Value Date Recorded Sex Assigned at Not on file Legal Sex Male 8:59 AM BARREL RIFLER HOOK Gender Identity Not on file Sexual Orientation Not on file documented as of this encounter Plan of Treatment Not on file documented as of this encounter Procedures Procedure Name Priority Date/Time Associated Diagnosis Comments SCAN - LABS 07/14/2019 documented in this encounter Results * SCAN - LABS (07/14/2019) us Provider Scanning Edited Result - Final documented in this encounter Visit Diagnoses Not on filedocumented in this encounter Care Teams Jig Fitter Relationship Specialty Start Date End Date Sanjeev Claudio MD [address] [place] [address] PCP - General 12/19/16 documented as of this encounter
--- OUTSIDE RECORDS SUMMARY | 2025-06-30 08:38 | XMS_ITS | Encounter Summary ---
Author Organization [facility] Address [address] [place] [address] Phone Care Team Providers Care Manager Equity Name Role Phone Sanjeev Claudio MD Primary Care Provider Encounter Details Date Type Department Care Team (Latest Contact Info) Description 05/11/2018 Orders Only [facility] Scanning, Provider Social History Tobacco Use Types Packs/Day Years Used Date Smoking Tobacco: Former Sex and Gender Information Value Date Recorded Sex Assigned at Not on file Legal Sex Male 8:59 AM GOLD LEAF ROLLER Gender Identity Not on file Sexual Orientation Not on file documented as of this encounter Plan of Treatment Not on file documented as of this encounter Procedures Procedure Name Priority Date/Time Associated Diagnosis Comments SCAN - LABS 05/11/2018 documented in this encounter Results * SCAN - LABS (05/11/2018) us Provider Scanning Final Result documented in this encounter Visit Diagnoses Not on filedocumented in this encounter Care Teams Manager Equity Relationship Specialty Start Date End Date Sanjeev Claudio MD [address] [place] [address] PCP - General 12/19/16 documented as of this encounter
--- OUTSIDE RECORDS SUMMARY | 2025-06-30 08:38 | XMS_ITS | Encounter Summary ---
Author Organization [facility] Address [address] [place] [address] Phone Care Team Providers Care Carbon Brusher Assembler Name Role Phone Sanjeev Claudio MD Primary Care Provider [phone] Encounter Details Date Type Department Care Team (Latest Contact Info) Description 11/10/2019 Orders Only [facility] Scanning, Provider Social History Tobacco Use Types Packs/Day Years Used Date Smoking Tobacco: Former Sex and Gender Information Value Date Recorded Sex Assigned at Not on file Legal Sex Male 8:59 AM MISSILE AND MISSILE CHECKOUT TECHNICIAN Gender Identity Not on file Sexual Orientation Not on file documented as of this encounter Plan of Treatment Not on file documented as of this encounter Procedures Procedure Name Priority Date/Time Associated Diagnosis Comments SCAN - RADIOLOGY/IMAGING 11/10/2019 documented in this encounter Results * SCAN - RADIOLOGY/IMAGING (11/10/2019) Anatomical Region Laterality Modality Other us Provider Scanning Final Result documented in this encounter Visit Diagnoses Not on filedocumented in this encounter Care Teams Carbon Brusher Assembler Relationship Specialty Start Date End Date Sanjeev Claudio MD [address] [place], [place] [id number] PCP - General 12/19/16 documented as of this encounter"
--- OUTSIDE RECORDS SUMMARY | 2025-06-30 08:38 | XMS_ITS | Encounter Summary ---
Author Organization [facility] Address [address] [place] [address] Phone Care Team Providers Care Civil Engineer'S Aide Name Role Phone Sanjeev Claudio MD Primary Care Provider [phone] Encounter Details Date Type Department Care Team (Latest Contact Info) Description 03/06/2021 Orders Only [facility] Scanning, Provider [...] on file Legal Sex Male 8:59 AM CHEESE COOKER Gender Identity Not on file Sexual Orientation Not on file Occupation Industry Job Start Date Job End Date Retired [employer] Not on file Not on file Not on file documented as of this encounter Plan of Treatment Not on file documented as of this encounter Procedures Procedure Name Priority Date/Time Associated Diagnosis Comments SCAN - LABS 03/05/2021 documented in this encounter Results * SCAN - LABS (03/05/2021) us Provider Scanning Edited Result - Final documented in this encounter Visit Diagnoses Not on filedocumented in this encounter Care Teams Civil Engineer'S Aide Relationship Specialty Start Date End Date Sanjeev Claudio MD [address] [place] [address] PCP - General 12/19/16 documented as of this encounter
== END 2025-06-30 08:36 | disposition home or self-care (01) ==
LOC: CHSIMG 08:36
PROVIDERS: PCP Internal Medicine; Visit Provider Internal Medicine
DX: Z12.2 Encounter for screening for malignant neoplasm of respiratory organs (principal); Z87.891 Personal history of nicotine dependence
CPT/HCPCS: 71271

== ENCOUNTER 2025-09-05 09:53 | Outpatient (CLI) | payer MEDICARE, SELFPAY ==
--- NOTE | ~2025-09-05 | CT_ITS ---
EXAMINATION: CT abdomen pelvis w con DATE: 09/05/2025 11:05 INDICATION: Acute, left lower abdominal pain. TECHNIQUE: Computed tomography (CT) of the abdomen and pelvis was performed with 100 cc Omnipaque 350 intravenous contrast. Automated exposure control and iterative reconstruction technique were employed. The dose-length product was 255.67 mGy-cm. COMPARISON: None. FINDINGS: The lung bases do not show acute findings. No focal lesions of liver and spleen. Gallbladder is distended in size without evidence of calcified gallstones or edema. Pancreas shows no acute findings. Kidneys do not show calculi are obstruction. No evidence small bowel obstruction. Moderate fecal impaction of the colon. Significant calcific atherosclerotic changes of abdominal aorta. No pelvic mass or fluid collections. Degenerative disc disease at L4-5 level. IMPRESSION: 1. No calculi or obstruction of the kidneys. 2. No focal inflammatory changes in the lower left abdomen. Fecal impaction of the colon. The appendix is not distinctly visible. 3. Calcific atherosclerotic changes of abdominal aorta. Reviewed, dictated and finalized at location T. URE ANALYSIS TECHNICIAN
[2025-09-05 10:15] LABS: Appearance Urine Clear (Clear); Glucose Urine UA 3+ (Negative); Leukocyte Esterase Ur Negative LEU/UL (Negative); Nitrate Urine Negative (Negative); Specific Grav Ur 1.020 (1.010-1.020)
[2025-09-05 10:16] LABS: Add Urine Microscopic? NO; Hematocrit 40.1 % (40.0-54.0); Hemoglobin 12.9 g/dL (14.0-18.0); Mean Corpuscular HGB Conc 32.2 g/dL (32-36); Mean Corpuscular Hemoglobin 29.9 pg (27.0-31.0); Mean Corpuscular Volume 92.8 fL (78.0-102.0); Platelet Count Result 209 K/mm3 (150-420); Red Blood Count 4.32 M/mm3 (4.70-6.10); White Blood Count 7.1 K/mm3 (4.8-10.8)
[2025-09-05 10:27] LABS: Alanine Aminotransferase 18 U/L (6-50); Albumin Level 4.4 g/dL (3.5-5.1); Alkaline Phosphatase 54 U/L (38-126); Anion Gap 10 mmol/L (4-12); Aspartate Amino Transferase 31 U/L (17-59); Bilirubin,Total 0.5 mg/dL (0.2-1.3); Blood Urea Nitrogen 20 mg/dL (9-20); Calcium 9.5 mg/dL (8.4-10.2); Carbon Dioxide 26 mmol/L (22-30); Chloride 106 mmol/L (98-107); Estimated Glomerular Filt Rate 59; Glucose 109 mg/dL (65-110); Osmolality Calculated 297 mOsm/kg (285-295); Potassium 3.9 mmol/L (3.4-5.0); Sodium 142 mmol/L (137-145); Total Protein 7.2 g/dL (6.3-8.2)
--- OUTSIDE RECORDS SUMMARY | 2025-09-05 10:54 | XMS_ITS | Encounter Summary ---
Author Organization [facility] Address [address] [place] [address] Care Team Providers Care Spar Machine Operator Helper Name Role Phone Sanjeev Claudio MD Primary Care Provider John Fairchild MD Unavailable Unavailable Encounter Details Date Type Department Care Team (Late st Contact Info) Description 05/18/2018 Abstract [facility] [address] [place] [id number] John Murrell MD [address] [place] [address], [address] [place] [address] Social History Tobacco Use Types Packs/Day Years Used Date Smoking Tobacco: Former Cigarettes Q uit: 2016 Smokeless Tobacco: Never Alcohol Use Standard Drinks/Week Comments Yes 0 (1 standard drink = 0.6 oz pur e alcohol) Rarely Sex and Gender Information Value Date Recorded Sex Assigned at Not on file Legal Sex Male 10:52 AM 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 Gender Identity Not on file Sexual Orientation Not on file Occupation Industry Job Start Date Job End Date Not on file Not on file Not on file Not on file documented as of this encounter Plan of Treatment Not on file documented as of this encounter Procedures Procedure Name Priority Date/Time Associated Diagnosis Comments ZULMA IFA SCREEN WI RFX TO TITER/CASCADE Routine 05/10/2018 documented in this encounter Results * ZULMA IFA SCREEN WI RFX TO TITER/CASCADE (05/10/2018) ZULMA TITER Positive ZULMA PATTERN Homogeneous 05/10/2018 us John Murrell MD LABORATORY Final Resul t documented in this encounter Visit Diagnoses Not on filedocumented in this encounter Care Teams Spar Machine Operator Helper Relationship Specialty Start Date End Date Sanjeev Claudio MD [address] [place] [address] PCP - General INTERNAL MEDICINE 10/15/17 John Fairchild MD [address] [place] [address] INTERVENTIONAL CARDIOLOGY 09/21/18 documented as of this encounter
--- OUTSIDE RECORDS SUMMARY | 2025-09-05 10:54 | XMS_ITS | Clinical Summary ---
Author Organization [facility] Address [address] [place] [address] Care Team Providers Care Construction Trades Contractor Name Role Phone Sanjeev Claudio MD Primary Care Provider [phone] John Fairchild MD Unavailable Unavailable Allergies Active Allergy Reactions Criticality Noted Date Comments Atorvastatin Other (see comment) Medium 11/24/2017 Elevated CPK/CK Medications aspirin EC (ASPIRIN) 81 MG EC tablet Take 81 mg by mouth daily. Active omeprazole 20 MG capsule Take 20 mg by mouth daily. Active hydrocodone-campos taminophen 10-325 MG tablet Take 1 tablet by mouth every 6 (six) hours as needed for Pain. Active nitroGLYCERIN 0.[address] 1 tablet (0.4 mg total) under the tongue every 5 (five) minutes as needed for Chest Pain. Maximum of 3 doses. 25 tablet 3 11/24/2017 Active amlodipine 10 MG tablet 10 mg daily. 06/09/2018 Active cyclobenzaprine 10 MG tablet Take 10 mg by mouth 3 (three) times daily as needed for Muscle Spasms. Active cilostazol 50 MG tablet Take 50 mg by mouth 2 (two) times daily. Active clopidogrel 75 MG tablet Take 75 mg by mouth daily. Active pravastatin 40 MG tablet Take 40 mg by mouth nightly at bedtime. Active Active Problems Problem Noted Date Diagnosed Date Coronary artery disease invo lving sho[place] coronary artery of [place] heart without angina pectoris 09/16/2018 S/P drug eluting coronary stent placement 2017 History of acute inferior wall DC 09/16/2018 HLD (hyperlipidemia) DC (myocardial infarction) Family History Relation Status Comments Father Mother Alive DC Social History Tobacco Use Types Packs/Day Years Used Date Smoking Tobacco: Former Cigarettes Q uit: 2016 Smokeless Tobacco: Never Alcohol Use Standard Drinks/Week Comments Yes 0 (1 standard drink = 0.6 oz pur e alcohol) Rarely Sex and Gender Information Value Date Recorded Sex Assigned at Not on file Legal Sex Male 10:52 AM SPECIAL EDUCATION CASE MANAGER Gender Identity Not on file Sexual Orientation Not on file Occupation Industry Job Start Date Job End Date Not on file Not on file Not on file Not on file Last Filed Vital Signs Vital Sign Reading Time Taken Comments Blood Pressure 126/74 09/16/2018 12:34 PM SPECIAL EDUCATION CASE MANAGER Pulse 68 09/16/2018 12:34 PM SPECIAL EDUCATION CASE MANAGER Temperature - - Respiratory Rate 16 09/16/2018 12:34 PM SPECIAL EDUCATION CASE MANAGER Oxygen Saturation - - Inhaled Oxygen Concentration - - Weight 77.8 kg (171 lb 9.6 oz) 09/16/2018 12:34 PM SPECIAL EDUCATION CASE MANAGER Height 178.4 cm (5' 10.25) 09/16/2018 12:34 PM SPECIAL EDUCATION CASE MANAGER Body Mass Index 24.45 09/16/2018 12:34 PM SPECIAL EDUCATION CASE MANAGER Plan of Treatment Health Maintenance Due Date Last Done Comments Colorectal Cancer Screening Colonoscopy (10 Years) 1964 Annual Physical 1967 Hepatitis C 1982 DTaP, Tdap and Td Vaccines ( 1 - Tdap) 1983 Zoster Vaccines (1 of 2) 2014 Pneumococcal Vaccine: 50+ Years (2 of 2 - PPSV23, PCV20, or PCV21) 09/10/2015 07/16/2015 ASCVD LDL 07/14/2020 07/14/2019, 05/10/2018, 10/10/2017 RSV Immunization or 60+ Years (1 - Risk 60-74 years 1-dose series) 2024 COVID-19 Vaccine ( - 2024-2 6 season) 2025 Influenza Adult (#1) 2025 Hepatitis A Vaccines Aged Out No long er eligible based on patient's age to complete this topic Meningococcal B Vaccine Aged Out No l onger eligible based on patient's age to complete this topic Meningococcal Vaccine Aged Out No иван roberto eligible based on patient's age to complete this topic RSV Immunizations Under 20 Months Aged Out No longer eligible b ased on patient's age to complete this topic Procedures Procedure Name Priority Date/Time Associated Diagnosis Comments LIPID PANEL Routine 07/14/2019 from Last 3 Months or Most Recently Relevant to Health Maintenance Results * LIPID PANEL (07/14/2019) CHOLESTEROL 177 HDL 52 TRIGLYCERIDES 95 CHOL/HDL RATIO 3.4 LDL (CALCULATED) 106 07/14/2019 us Doc [facility] LABORATORY Final Result from Last 3 Months or Most Recently Relevant to Health Maintenance [place] [address] MEDICARE AET Care Teams Construction Trades Contractor Relationship Specialty Start Date End Date Sanjeev Claudio MD [address] [place] [address] PCP - General INTERNAL MEDICINE 10/15/17 John Fairchild MD [address] [place] [address] INTERVENTIONAL CARDIOLOGY 09/21/18
--- OUTSIDE RECORDS SUMMARY | 2025-09-05 10:54 | XMS_ITS | Encounter Summary ---
Author Organization [facility] Address [address] [place] [address] Phone Care Team Providers Care Harness Fitter Name Role Phone Sanjeev Claudio MD Primary Care Provider Encounter Details Date Type Department Care Team (Latest Contact Info) Description 10/09/2017 Orders Only [facility] Scanning, Provider Social History Tobacco Use Types Packs/Day Years Used Date Smoking Tobacco: Former Sex and Gender Information Value Date Recorded Sex Assigned at Not on file Legal Sex Male 8:59 AM PRINCIPAL DATA ARCHITECT Gender Identity Not on file Sexual Orientation [...] on filedocumented in this encounter Care Teams Harness Fitter Relationship Specialty Start Date End Date Sanjeev Claudio MD [address] [place], [place] [id number] PCP - General 12/19/16 documented as of this encounter
--- OUTSIDE RECORDS SUMMARY | 2025-09-05 10:54 | XMS_ITS | Encounter Summary ---
Author Organization [facility] Address [address] [place] [address] Care Team Providers Care Fitness Sales Associate Name Role Phone Sanjeev Claudio MD Primary Care Provider [phone] John Fairchild MD Unavailable Unavailable Encounter Details Date Type Department Care Team (Late st Contact Info) Description 05/21/2018 Abstract [facility] AT [address] [place] [address] Anjelica Bragg, HATTIE [address] [facility] [address] [place] [id number] Social History Tobacco Use Types Packs/Day Years Used Date Smoking Tobacco: Former Cigarettes Q uit: 2016 Smokeless Tobacco: Never Alcohol Use Standard Drinks/Week Comments Yes 0 (1 standard drink = 0.6 oz pur e alcohol) Rarely Sex and Gender Information Value Date Recorded Sex Assigned at Not on file Legal Sex Male 10:52 AM 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 Gender Identity Not on file Sexual Orientation Not on file Occupation Industry Job Start Date Job End Date Not on file Not on file Not on file Not on file documented as of this encounter Plan of Treatment Not on file documented as of this encounter Procedures Procedure Name Priority Date/Time Associated Diagnosis Comments LIPID PANEL (OUTSIDE LAB) Routine 05/10/2018 CMP (ABSTRACTED LAB) Routine 05/10/2018 IRON STUDIES Routine 05/10/2018 GFR Routine 05/10/2018 T3 FREE (ABSTRACTED) Routine 05/10/2018 CK (CPK) Routine 05/10/2018 documented in this encounter Results * LIPID PANEL (OUTSIDE LAB) (05/10/2018) CHOLESTEROL 189 TRIGLYCERIDES 61 HDL 48 LDL (CALCULATED) 129 CHOL/HDL RATIO 3.9 05/10/2018 us Sanjeev Claudio MD LAB-OUTSIDE/ABSTRACTED Final Result * GFR (05/10/2018) 05/10/2018 us Sanjeev Claudio MD LABORATORY Final Result * CMP (ABSTRACTED LAB) (05/10/2018) SODIUM S/P/B 140 POTASSIUM S/P/B 4.6 CHLORIDE S/P/B 106 CO2 29 CREATININE S/P/B 1.04 0.7 - 1.3 CALCIUM S/P/B 9.0 TOTAL PROTEIN S/P/B 6.9 ALBUMIN S/P/B 3.8 3.5 - 5.0 AST 25 ALT 31 ALKALINE PHOSPHATASE S/P/B 57 BILIRUBIN TOTAL S/P/B 0.51 GLUCOSE 100 mg/dL BUN 22 OSMOLALITY (S/P/B) 283 ANION GAP 5 A/G RATIO 1.2 BUN CREATININE RATIO 21.2 05/10/2018 Result Guevara Claudio MD LAB-OUTSIDE/ABSTRACTED Final Result * IRON STUDIES (05/10/2018) IRON 86 % IRON SATURATION 28.9 IRON BINDING CAPACITY 298 FREE T4 0.95 TSH 4.58 FERRITIN 189 VITAMIN B12 S/P/B 410 05/10/2018 us Sanjeev Claudio MD LABORATORY Final Result * T3 FREE (ABSTRACTED) (05/10/2018) FREE T3 2.52 05/10/2018 us Sanjeev Claudio MD LAB-OUTSIDE/ABSTRACTED Final Result * CK (CPK) (05/10/2018) CPK 469 05/10/2018 us Sanjeev Claudio MD LABORATORY Final Result documented in this encounter Visit Diagnoses Not on filedocumented in this encounter Care Teams Fitness Sales Associate Relationship Specialty Start Date End Date Sanjeev Claudio MD [address] [place] [id number] PCP - General INTERNAL MEDICINE 10/15/17 John Fairchild MD [address] [place] [address] INTERVENTIONAL CARDIOLOGY 09/21/18 documented as of this encounter
--- OUTSIDE RECORDS SUMMARY | 2025-09-05 10:54 | XMS_ITS | Encounter Summary ---
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
--- OUTSIDE RECORDS SUMMARY | 2025-09-05 10:54 | XMS_ITS | Encounter Summary ---
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
--- OUTSIDE RECORDS SUMMARY | 2025-09-05 10:54 | XMS_ITS | Encounter Summary ---
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
--- OUTSIDE RECORDS SUMMARY | 2025-09-05 10:54 | XMS_ITS | Encounter Summary ---
Author Organization 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
--- OUTSIDE RECORDS SUMMARY | 2025-09-05 10:55 | XMS_ITS | Encounter Summary ---
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
--- OUTSIDE RECORDS SUMMARY | 2025-09-05 10:55 | XMS_ITS | Clinical Summary ---
Author Organization [facility] Address [address] [place] [address] Care Team Providers Care Restorer Paper And Prints Name Role Phone Sanjeev Claudio MD Primary Care Provider Allergies Active Allergy Reactions Criticality Noted Date Comments Atorvastatin Unknown Medium 11/24/2017 Elevated CPK/CK Currently tolerating 40mg/daily Medications HYDROcodone-aceta minophen (NORCO) 10-325 mg per tabletIndications :Pain Take 1 tablet by mouth every 4 (four) hours as needed 013 Active nitroglycerin (NITROSTAT) 0.[address] 1 tablet (0.4 mg total) under the tongue every 5 (five) minutes as needed for chest pain Active omeprazole (PriLOSEC) 40 mg capsule 022 Active coenzyme Q10 10 mg capsule Take 1 capsule (10 mg total) by mouth daily Active multivitamin capsule Take 1 capsule by mouth daily Active mv-mn/iron/folic acid/herb 190 (VITAMIN D3 COMPLETE ORAL) Take by mouth A ctive cyanocobalamin, vitamin B-12, (VITAMIN B-12 ORAL) Take by mouth Active evolocumab 140 mg/mL pen injectorIndicatio ns:atheroscleroti c cardiovascular disease,hyperchol esterolemia Inject 1 mL (140 mg total) under the skin every 2 (two) weeks 6 mL 3 023 Active aspirin 81 mg enteric coated tablet Take 1 tablet (81 mg total) by mouth daily Active sacubitriL-valsar johnson (ENTRESTO) 24-26 mg tabletIndications :chronic heart failure Take 0.5 tablets by mouth 2 (two) times a day 90 tablet 3 Active SF 5000 Plus 1.1 % cream Active sacubitriL-valsar johnson (Entresto) 24-26 mg tablet Use as directed 28 tablet Active Additional Information Patient not taking.Reported on 09/28/2024 dapagliflozin propanediol (FARXIGA) 10 mg tablet Take 1 tablet (10 mg total) by mouth daily 30 tablet 11 Active dapagliflozin propanediol (FARXIGA) 10 mg tablet Use as directed 14 tablet Active sacubitriL-valsar johnson (ENTRESTO) 24-26 mg tabletIndications :chronic heart failure Use as directed 28 tablet Active carvediloL (COREG) 3.125 mg tablet TAKE ONE TABLET BY MOUTH TWICE A DAY 60 tablet 11 Active cilostazoL (PLETAL) 50 mg tablet TAKE ONE TABLET BY MOUTH TWICE A DAY 180 tablet 3 Active Repatha SureClick 140 mg/mL pen injector ADMINISTER 1ML(140MG) UNDER THE SKIN EVERY 14 DAYS 6 mL Active Repatha SureClick 140 mg/mL pen injector ADMINISTER 1 ML(140 MG) UNDER THE SKIN EVERY 14 DAYS 6 mL 025 2024 Discontinued Active Problems Problem Noted Date Diagnosed Date Ischemic cardiomyopathy 04/26/2024 Chronic diastolic congestive heart failure 04/26 Cardiac left ventricular ejection fraction 21-40 percent 04/26/2024 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 11/28/2020 Overview (11/28/2020): Added automatically from request for surgery [id number] Coronary artery disease with angina pectoris 03/2020 Overview (04/16/2020): Added automatically from request for surgery [id number] Chest pain 04/16/2020 Overview (04/16/2020): Added automatically from request for surgery [id number] Thromboangiitis obliterans 12/20/2012 Raised antibody titer 03/22/2012 [...] on file Legal Sex Male 8:59 AM PRINTED CIRCUIT LAYOUT TAPER Gender Identity Not on file Sexual Orientation Not on file 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 Not on file Not on file Last Filed Vital Signs Vital Sign Reading Time Taken Comments Blood Pressure 97/65 12/07/2024 11:09 AM PRINTED CIRCUIT LAYOUT TAPER Pulse 66 12/07/2024 11:09 AM PRINTED CIRCUIT LAYOUT TAPER Temperature 36.8 C (98.2 F) 12/07/2024 11:09 AM PRINTED CIRCUIT LAYOUT TAPER Respiratory Rate 18 09/28/2024 8:21 AM PRINTED CIRCUIT LAYOUT TAPER Oxygen Saturation 97% 06/06/2024 9:15 AM CDT Inhaled Oxygen Concentration - - Weight 76.2 kg (168 lb) 12/07/2024 11:09 AM PRINTED CIRCUIT LAYOUT TAPER Height 177.8 cm (5' 10) 12/07/2024 11:09 AM PRINTED CIRCUIT LAYOUT TAPER Body Mass Index 24.11 12/07/2024 11:09 AM PRINTED CIRCUIT LAYOUT TAPER Plan of Treatment Health Maintenance Due Date [...] 9, 07/30/2018, 06/26/2017, Additional history exists Insurance [facility] MEDICARE ADVANTAGE [facility] MDCR HMO REF U[employer] MEDICARE ADVANTAGE UHC MEDICARE ADVANTAGE Advance Directives For more information, please contact: [phone] * Full Code (Latest Code Status on File) Date Activated Date Inactivated Comments 05/20/2024 9:52 AM 05/21/2024 4:38 AM Care Teams Restorer Paper And Prints Relationship Specialty Start Date End Date Sanjeev Claudio MD [address] [place] [address] PCP - General 12/19/16
--- OUTSIDE RECORDS SUMMARY | 2025-09-05 10:55 | XMS_ITS | Encounter Summary ---
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
--- OUTSIDE RECORDS SUMMARY | 2025-09-05 10:55 | XMS_ITS | Clinical Summary ---
Author Organization [facility] Address [address] [place] [address] Care Team Providers Care Bee Breeder Name Role Phone Unavailable Primary Care Provider Unavailabl e Source Comments [facility],non-owned Affiliates and Associated Physician Practices is amultiple site organization consisting of ambulatory clinics and hospital sitesin [place], [place], [place] and [place]. This disclosure is being madepursuant to the Care Everywhere program and may not contain all information available regarding this patient. Last updated 18.[facility] Allergies No known active allergies Social History [...] CALENDAR YEAR 2024 COVID-19 VACCINE ( - 2024-2 6 season) 2025 INFLUENZA VACCINE (#1) 2025 Respiratory [...] patient's age to complete this topic Insurance [facility] MANAGED MEDICARE ADV SELF PAY NO INSURANCE Member Subscriber Plan / Payer (Ef fective for All Dates) Name:Samantha Smart Member ID:Not on file Relation to Subscriber:Not on file Name:SAMANTHA SMART Subscriber ID:Not on file Address: [address] [place] [address] Payer ID:Not on file Group ID:Not on file Type:Self Pay Address: [place], [place] UHC MANAGED MEDICARE ADV SELF PAY NO INSURANCE Member Subscriber Plan / Payer (Ef fective for All Dates) Name:Samantha Smart Member ID:Not on file Relation to Subscriber:Not on file Name:SAMANTHA SMART Subscriber ID:Not on file Address[address] [facility] [address] Payer ID:Not on file Group ID:Not on file Type:Self Pay Address: [facility] MANAGED MEDICARE ADV SELF PAY NO INSURANCE Member Subscriber Plan / Payer (Ef fective for All Dates) Name:Samantha Smart Member ID:Not on file Relation to Subscriber:Not on file Name:SAMANTHA SMART Subscriber ID:Not on file Address: [address] [place] [address] Payer ID:Not on file Group ID:Not on file Type:Self Pay Address: [facility] MEDICARE ADV
[2025-09-05 15:55] LABS: Immature Reticulocyte Fraction 5.7 % (2.0-16.52); Reticulocyte Hemoglobin Conten 34.9 pg (28.0-35.0); Reticulocytes Absolute 0.05 M/mm3 (0.02-0.10)
[2025-09-05 15:59] LABS: Iron 87 ug/dL (49-181)
[2025-09-05 16:36] LABS: Ferritin 103.00 ng/mL (11.1-264)
[2025-09-05 17:07] LABS: Vitamin B12 409.0 pg/mL (239-931)
== END 2025-09-05 09:54 | disposition home or self-care (01) ==
LOC: CHSIMG 09:55
PROVIDERS: PCP Internal Medicine; Visit Provider Internal Medicine
DX: D64.9 Anemia, unspecified (principal); R10.32 Left lower quadrant pain; I70.0 Atherosclerosis of aorta
CPT/HCPCS: 36415; 74177; 80053; 81003; 82607; 82728; 82746; 83540; 85027; 85046; Q9967

== ENCOUNTER 2025-09-11 12:28 | Outpatient (CLI) | payer MEDICARE, SELFPAY ==
--- NOTE | ~2025-09-11 | US_ITS ---
US art doppler w press LE BI INDICATION: Peripheral arterial disease of the legs TECHNIQUE: Segmental pressures and plethysmographic and Doppler waveforms of the brachial and lower extremity arteries were obtained. COMPARISON: None. FINDINGS: Right and left brachial artery pressures of 85 mm Hg and 88 mm Hg, respectively, are concordant (normal difference <= 30 mmHg). The right ankle-brachial index (JOESPH) is 1.25 (normal >= 0.9-1.0). The right great toe-brachial index (TBI) is 0.72 (normal >= 0.60). There is triphasic flow in the right common femoral, superficial femoral and popliteal arteries consistent with normal waveform. There is monophasic flow in the right posterior tibial artery indicating distal waveform damping or possible infrapopliteal arterial disease. Monophasic flow right total arterial Doppler consistent with distal small vessel compromise. The left JOESPH is 1.32. The left TBI is 0.35. Biphasic flow in the left common femoral and popliteal arteries suggestive of mild-moderate proximal arterial stiffness or early inflow disease. Monophasic flow in the posterior tibial and dorsalis pedis arteries indicating significant distal arterial waveform dampening and probable infrapopliteal arterial disease. Monophasic flow in the left toe arterial Doppler corresponding to decreased toe brachial index. IMPRESSION: 1. Findings consistent with distal tibial/pedal small vessel disease, left worse than right. Despite normal ankle-brachial indices, toe brachial indices and distal monophasic flow indicate below the ankle perfusion deficit especially on the left. Reviewed, dictated and finalized at location I. L ENGINEERING PROJECT DESIGNER IMPRESSION: 1. Findings consistent with distal tibial/pedal small vessel disease, left wors e than right. Despite normal ankle-brachial indices, toe brachial indices and d istal monophasic flow indicate below the ankle perfusion deficit especially on the left.
--- OUTSIDE RECORDS SUMMARY | 2025-09-11 13:38 | XMS_ITS | Encounter Summary ---
Author Organization [facility] Address [address] [place] [address] Care Team Providers Care Pinner Printed Circuit Boards Name Role Phone Sanjeev Claudio MD Primary Care Provider [phone] John Fairchild MD Unavailable Unavailable Encounter Details Date Type Department Care Team (Late st Contact Info) Description 05/21/2018 Abstract [facility] AT [address] [place] [address] Anjeilca Bragg, HATTIE [address] [facility] [address] [place] [phone] Social History Tobacco Use Types Packs/Day Years Used Date Smoking Tobacco: Former Cigarettes Q uit: 2016 Smokeless Tobacco: Never Alcohol Use Standard Drinks/Week Comments Yes 0 (1 standard drink = 0.6 oz pur e alcohol) Rarely Sex and Gender Information Value Date Recorded Sex Assigned at Not on file 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
--- OUTSIDE RECORDS SUMMARY | 2025-09-11 13:38 | XMS_ITS | Encounter Summary ---
Author Organization 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
--- OUTSIDE RECORDS SUMMARY | 2025-09-11 13:38 | XMS_ITS | Clinical Summary ---
Author Organization [facility] Address [address] [place] [address] Care Team Providers Care Fast Food Manager Name Role Phone Sanjeev Claudio MD Primary Care Provider John Fairchild MD Unavailable Unavailable Allergies Active [...] Diagnosed Date Coronary artery disease invo lving [place] coronary artery of [place] heart without angina pectoris 09/16/2018 S/P drug eluting coronary stent placement 2017 History of acute inferior wall [place] 09/16/2018 HLD (hyperlipidemia) [place] (myocardial infarction) Family History Relation Status Comments Father Mother Alive [place] Social History Tobacco Use Types Packs/Day Years Used Date Smoking Tobacco: Former Cigarettes Q uit: 2016 Smokeless Tobacco: Never Alcohol Use Standard Drinks/Week Comments Yes 0 (1 standard drink = 0.6 oz pur e alcohol) Rarely Sex and Gender Information Value Date Recorded Sex Assigned at Not on file Legal Sex Male 10:52 AM RUBBER TUBING BACKER Gender Identity Not on file Sexual Orientation Not on file Occupation Industry Job Start Date Job End Date Not on file Not on file Not on file Not on file Last Filed Vital Signs Vital Sign Reading Time Taken Comments Blood Pressure 126/74 09/16/2018 12:34 PM RUBBER TUBING BACKER Pulse 68 09/16/2018 12:34 PM RUBBER TUBING BACKER Temperature - - Respiratory Rate 16 09/16/2018 12:34 PM RUBBER TUBING BACKER Oxygen Saturation - - Inhaled Oxygen Concentration - - Weight 77.8 kg (171 lb 9.6 oz) 09/16/2018 12:34 PM RUBBER TUBING BACKER Height 178.4 cm (5' 10.25) 09/16/2018 12:34 PM RUBBER TUBING BACKER Body Mass Index 24.45 09/16/2018 12:34 PM RUBBER TUBING BACKER Plan of Treatment Health Maintenance Due Date [...] Most Recently Relevant to Health Maintenance [place] [address] [place] [address] MEDICARE AET Care Teams Fast Food Manager Relationship Specialty Start Date End Date Sanjeev Claudio MD [address] [place] [address] PCP - General INTERNAL MEDICINE 10/15/17 John Fairchild MD [address] [place] [address] INTERVENTIONAL CARDIOLOGY 09/21/18
--- OUTSIDE RECORDS SUMMARY | 2025-09-11 13:38 | XMS_ITS | Encounter Summary ---
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
--- OUTSIDE RECORDS SUMMARY | 2025-09-11 13:38 | XMS_ITS | Encounter Summary ---
Author Organization [facility] Address [address] [place] [address] Care Team Providers Care Web Operations Manager Name Role Phone Sanjeev Claudio MD Primary Care Provider John Fairchild MD Unavailable Unavailable Encounter Details Date Type Department Care Team (Late st Contact Info) Description 05/18/2018 Abstract [facility] [address] [place] [id number] John Murrell MD [address] [place] [address], [address] [place] [address] Social History Tobacco Use Types Packs/Day Years Used Date Smoking Tobacco: Former Cigarettes Q uit: 2016 Smokeless Tobacco: Never Alcohol Use Standard Drinks/Week Comments Yes 0 (1 standard drink = 0.6 oz pur e alcohol) Rarely Sex and Gender Information Value Date Recorded Sex Assigned at Not on file Legal Sex Male 10:52 AM RADIOLOGIC TECHNOLOGIST CHIEF Gender Identity Not on file Sexual Orientation [...] on filedocumented in this encounter Care Teams Web Operations Manager Relationship Specialty Start Date End Date Sanjeev Claudio MD [address] [place] [address] PCP - General INTERNAL MEDICINE 10/15/17 John Fairchild MD [address] [place] [address] INTERVENTIONAL CARDIOLOGY 09/21/18 documented as of this encounter
--- OUTSIDE RECORDS SUMMARY | 2025-09-11 13:39 | XMS_ITS | Encounter Summary ---
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
--- OUTSIDE RECORDS SUMMARY | 2025-09-11 13:39 | XMS_ITS | Clinical Summary ---
Author Organization [email or web address] Address [address] [place] [address] Care Team Providers Care Yard Supervisor Name Role Phone Unavailable Primary Care Provider Unavailabl e Source Comments [facility],non-owned Affiliates and Associated Physician Practices is amultiple site organization consisting of ambulatory clinics and hospital sitesin [place], [place], [place] and [place]. This disclosure is being madepursuant to the Care Everywhere program and may not contain all information available regarding this patient. Last updated 18.[email or web address] Allergies No known active allergies Social History [...] patient's age to complete this topic Insurance [facility] MANAGED MEDICARE ADV SELF PAY NO INSURANCE Member Subscriber Plan / Payer (Ef fective for All Dates) Name:Samantha Smart Member ID:Not on file Relation to Subscriber:Not on file Name:SAMANTHA SMART Subscriber ID:Not on file Address: [address] [place] [address] Payer ID:Not on file Group ID:Not on file Type:Self Pay Address: [place], [place] UHC MANAGED MEDICARE ADV SELF PAY NO INSURANCE Member Subscriber Plan / Payer (Ef fective for All Dates) Name:Samantha Smart Member ID:Not on file Relation to Subscriber:Not on file Name:SAMANTHA SMART Subscriber ID:Not on file Address: [address] [address] Payer ID:Not on file Group ID:Not on file Type:Self Pay Address: [facility] MANAGED MEDICARE ADV SELF PAY NO INSURANCE Member Subscriber Plan / Payer (Ef fective for All Dates) Name:Samantha Smart Member ID:Not on file Relation to Subscriber:Not on file Name:SAMANTHA SMART Subscriber ID:Not on file Address: [address] [place] [address] Payer ID:Not on file Group ID:Not on file Type:Self Pay Address: [facility] MEDICARE ADV
--- OUTSIDE RECORDS SUMMARY | 2025-09-11 13:39 | XMS_ITS | Encounter Summary ---
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
--- OUTSIDE RECORDS SUMMARY | 2025-09-11 13:39 | XMS_ITS | Encounter Summary ---
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
--- OUTSIDE RECORDS SUMMARY | 2025-09-11 13:39 | XMS_ITS | Clinical Summary ---
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 Raised antibody titer 03/22/2012 [...] on file Legal Sex Male 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 Gender Identity Not on file Sexual Orientation Not on file 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 Not on file Not on file Last Filed Vital Signs Vital Sign Reading Time Taken Comments Blood Pressure 97/65 12/07/2024 11:09 AM STORE ASSISTANT Pulse 66 12/07/2024 11:09 AM STORE ASSISTANT Temperature 36.8 C (98.2 F) 12/07/2024 11:09 AM STORE ASSISTANT Respiratory Rate 18 09/28/2024 8:21 AM STORE ASSISTANT Oxygen Saturation 97% 06/06/2024 9:15 AM CDT Inhaled Oxygen Concentration - - Weight 76.2 kg (168 lb) 12/07/2024 11:09 AM STORE ASSISTANT Height 177.8 cm (5' 10) 12/07/2024 11:09 AM STORE ASSISTANT Body Mass Index 24.11 12/07/2024 11:09 AM STORE ASSISTANT Plan of Treatment Health Maintenance Due Date [...] 9, 07/30/2018, 06/26/2017, Additional history exists Insurance [facility] MEDICARE ADVANTAGE [facility] HMO REF UHC MEDICARE ADVANTAGE UHC MEDICARE ADVANTAGE Advance Directives For more information, please contact: [phone] * Full Code (Latest Code Status on File) Date Activated Date Inactivated Comments 05/20/2024 9:52 AM 05/21/2024 4:38 AM Care Teams Chief Telephone Operator Relationship Specialty Start Date End Date Sanjeev Claudio MD [address] [place] [address] PCP - General 12/19/16
--- OUTSIDE RECORDS SUMMARY | 2025-09-11 13:39 | XMS_ITS | Encounter Summary ---
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
--- OUTSIDE RECORDS SUMMARY | 2025-09-11 13:39 | XMS_ITS | Encounter Summary ---
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
== END 2025-09-11 12:29 | disposition home or self-care (01) ==
LOC: CHSIMG 12:30
PROVIDERS: PCP Internal Medicine; Visit Provider Internal Medicine
DX: I73.00 Raynaud's syndrome without gangrene (principal); I73.9 Peripheral vascular disease, unspecified
CPT/HCPCS: 93923